=== PATIENT | male | born 1965 | race Asian ===

== ENCOUNTER 2021-05-25 14:07 | Emergency (ER) | payer SELFPAY ==
[~2021-05-25] VITALS: Ht 167.6 cm; Wt 81.6 kg
[2021-05-25 14:22] VITALS: BP 150/103
[2021-05-25] MEDS ORDERED: LIDOCAINE 2% 1000 MG/50 ML VIAL INJ ONE (14:35)
[2021-05-25] MEDS ORDERED: oxyCODONE/APAP 5/325 MG 1 TAB TAB PO ONE (14:35)
[2021-05-25] MEDS ORDERED: IBUPROFEN 800 MG TAB PO ONE (14:35)
--- NOTE | 2021-05-25 15:00 | NUR ---
55 y/o male bib self due to finger lacs on right hand, 2nd 3rd and 4th digit lac after using saw at work today. denies nausea, vomiting, diarrhea. skin is pink/warm/dry. a&o x4 with even and steady gait. lungs clear bl, heart rate even and regular. pt denies any fever, cp, sob, or cough at this time. pt states pain is 8/10 at this time. patient positioned for comfort. hob elevated. bed down. ermd made aware of pt. pmh: dm2 mary
[2021-05-25] MEDS ORDERED: NEOMYCIN/POLYMYXIN/BACITRACIN 0.9 GM/1 PKT TP STA (15:23)
[2021-05-25] MEDS ORDERED: cephALEXin 500 MG CAP PO ONE (15:25)
--- NOTE | 2021-05-25 15:46 | NUR ---
allison menezes in room for procedure
[2021-05-25] MEDS ORDERED: CEPH-588 PO (17:30)
--- NOTE | 2021-05-25 17:58 | NUR ---
Patient discharged with v/s stable. Written and verbal after care instructions given and explained. Patient alert, oriented and verbalized understanding of instructions. Ambulatory with family to car. All questions addressed prior to discharge. ID band removed. Patient advised to follow up with PMD. Rx of keflex (sent) given. Patient educated on indication of medication including possible reaction and side effects. Opportunity to ask questions provided and answered. work note given. 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
[2021-05-25 17:59] VITALS: BP 150/103
== END 2021-05-25 17:58 | disposition home or self-care (01) ==
LOC: MED 14:07
DX: S62.630B Displaced fracture of distal phalanx of right index finger, initial encounter for open fracture (principal); S62.632B Displaced fracture of distal phalanx of right middle finger, initial encounter for open fracture; S61.310A Laceration without foreign body of right index finger with damage to nail, initial encounter; S61.312A Laceration without foreign body of right middle finger with damage to nail, initial encounter; W45.8XXA Other foreign body or object entering through skin, initial encounter; Y93.89 Activity, other specified; Y92.89 Other specified places as the place of occurrence of the external cause; Y99.8 Other external cause status
CPT/HCPCS: 11760; 29130; 73130; 90471; 90715; 99284; J2001; Q0092; 11730